=== PATIENT | female | born 1990 ===

== ENCOUNTER 2020-06-16 10:26 | Emergency (ER) | payer OTHER, MEDICAID, SELFPAY ==
--- NOTE | ~2020-06-16 | XR_ITS ---
EXAMINATION: XR CHEST CLINICAL INFORMATION: Shortness of breath COMPARISON: 05/24/2016 TECHNIQUE: Frontal view of the chest was obtained. FINDINGS: The cardiomediastinal silhouette is within normal limits. The lungs are well expanded. There is patchy opacities in the medial aspect of right lung base, appearing slightly more prominent as compared to previous. This could be related to overlapping densities versus developing infiltrate.. There is no focal consolidation, edema, or effusion. No pneumothorax. No acute osseous abnormality. XR/XR chest 1V IMPRESSION: Patchy opacities in the medial aspect of the right lung base, slightly more prominent as compared to previous, could be related to overlapping densities versus developing infiltrate.
[2020-06-16 10:44] VITALS: BP 117/76; PULSE 102; RESP 16; TEMP 36.8; O2SAT 100; BMI 26.5
--- NOTE | 2020-06-16 10:51 | ED_ITS ---
HPI - SOB/Dyspnea General Chief Complaint: Dyspnea Stated Complaint: covid + SOB Time Seen by Provider: 06/16/20 10:46 Source: patient Mode of arrival: ambulatory Limitations: no limitations History of Present Illness HPI Narrative: 29 y/o female with history of Crohn's disease, depression and anxiety who was diagnosed with COVID-19 4 days ago presents with worsening SOB and chest tightness for the last 2 days. She has a hard time catching her breath when she walks. She states the chest tightness radiates to her back. She has body aches, fatigue as well as diarrhea for the last 1 week. She thinks she is having a Crohn's flare because there is a small amount of blood in her stool. She has been off of her Lara for a while now because of mental health issues. She denies abdominal pain. MD elicited complaint: shortness of breath Onset (ago): day(s) (2-3) Context: recent illness Timing: intermittent and progressively worsening Severity: moderate Exacerbating factors: exertion and coughing Relieving factors: rest and upright position Associated symptoms: chest pain, fever and cough Treatment prior to arrival: none Related Data Home oxygen amount: none Previous Rx's Medication Instructions Recorded albuterol sulfate 1 inh INHALATION QID PRN #6.7 g 06/16/20 azithromycin [Zithromax Z-Tong] See Rx Instructions .ROUTE 06/16/20 .COMPLEX #6 tab prednisone 40 mg PO DAILY #10 tab 06/16/20 Allergies Allergy/AdvReac Type Severity Reaction Status Date / Time buspirone [From BUSPAR] Allergy Unknown RASH Unverified 01/06/20 17:17 BuSpar Allergy Unknown Uncoded 03/01/19 00:00 Review of Systems Review of Systems: Constitutional: + Fever, + Chills ENT/Mouth: No sore throat, No Rhinorrhea, No Swallowing Difficulty Cardiovascular: + Chest Pain, + SOB, No Orthopnea, No Edema Respiratory: + Cough, No Sputum, No Wheezing, + dyspnea Gastrointestinal: No Nausea, No Vomiting, + Diarrhea, No abdominal Pain, + Hematochezia, No Melena Genitourinary: No Dysuria, No Urinary Frequency, No Hematuria Musculoskeletal: No joint pain, + Myalgias Skin: No Skin Lesions, No rash Neuro: + Weakness, No Numbness, No Dizziness, + Headache Psych: + Anxiety/Panic, + Depression Heme/Lymph: No Bruising, No Lymphadenopathy Endocrine: No Polyuria, No Polydipsia PMFSH Past Medical History Attestation statement: The following information was validated with the patient. Medical History Acute Crohn's disease Social History Social History Alcohol intake: never Smoking Status: Current some day smoker Use of substances other than those prescribed or required for medical reasons: Yes Substance Use Type: Marijuana Last Used Substance: Days (ago) Advance Directives: No Advance Directives Information Provided: No Physical Exam Vital Signs: Vital Signs: Last Vital Signs Temp 98.2 F 06/16/20 10:44 Pulse 85 06/16/20 11:36 Resp 18 06/16/20 11:36 BP 98/62 06/16/20 11:36 Pulse Ox 100 06/16/20 11:36 Body Mass Index 26.5 Appearance: Alert. Oriented X3. Mild respiratory distress, after walking back from the bathroom. Eyes: Pupils equal, round and reactive to light. ENT: Pharynx normal. Neck: Normal inspection. Neck supple. CVS: Tachycardic, regular rhythm. Pulses normal. Respiratory: Mild respiratory distress with RR low 20s, dyspneic when speaking. Lungs are clear throughout Abdomen: Soft and nontender. +BS x4 Skin: Skin warm and dry. Normal skin color. Normal skin turgor. No rashes. Extremities: No lower extremity edema. Neuro: Oriented X 3. No motor deficit. No sensory deficit. Steady gait Course Course Course Narrative: 29 yo female with hx Crohn's and recent COVID diagnosis presenting with SOB, MATTA and chest tightness. Slightly tachycardic on arrival and dyspnea noted on walking. Her Spo2 is 100%. Need to r/o PE given her COVID diagnosis. CXR and blood work ordered. Reevaluation(s) Reevaluation #1: DDIMER <200 which is reassuring against PE. Her CXR shows possible infiltrate at RLL, likely viral due to COVID-19. Will treat with pred nisone and azithromycin for anti-inflammatory affects. She was counseled on results and concerning signs/symptoms that should prompt emergent reevauation in the ED. MDM - SOB/Dyspnea Lab Data Result diagrams: 06/16/20 12:04 06/16/20 12:04 Labs: Lab Results 06/16/20 06/16/20 06/16/20 Range/Units 12:04 12:04 12:04 WBC 4.9 (4.8-10.8) X10*3/uL RBC 4.66 (4.20-5.50) X10*6/uL Hgb 14.2 (12.0-16.0) g/dl Hct 41.3 (37-47) % MCV 88.6 (80-98) fL MCH 30.5 (27.0-33.0) pg MCHC 34.4 (31.0-35.0) g/dl RDW 11.5 (11.0-16.0) % Plt Count 285 (160-400) X10*3/uL MPV 9.5 (9.4-12.3) fL Immature Gran % (Auto) 0.4 (0.0-0.4) % Neut % (Auto) 71.1 (45-73) % Lymph % (Auto) 16.6 L (20-40) % Burnet % (Auto) 9.3 (2-11) % Eos % (Auto) 2.2 (0-4) % Baso % (Auto) 0.4 (0-2) % Lymph # (Auto) 0.8 L (1.2-4.9) X10*3/uL Burnet # (Auto) 0.5 (0.1-1.2) X10*3/uL Eos # (Auto) 0.1 (0.0-0.4) X10*3/uL Baso # (Auto) 0.0 (0.0-0.2) X10*3/uL Abs Immat Gran (auto) 0.02 (0.00-0.03) X10*3/uL Absolute Neuts (auto) 3.5 (2.0-8.3) X10*3/uL Absolute Nucleated RBC 0.000 (0.0-0.012) X10*3/uL Nucleated RBC % (auto) 0.0 (0.0-0.2) /100WBC D-Dimer < 200 NG/ML Hold Blue Top SEE NOTE Sodium 139 (135-145) mmol/L Potassium 3.6 (3.3-5.1) mmol/L Chloride 103 (96-108) mmol/L Carbon Dioxide 26 (22-29) mmol/L Anion Gap 14 (12-20) BUN 17 H (9-16) mg/dL Creatinine 0.77 (0.5-1.4) mg/dL Estim Creat Clear Calc 84.7 Estimated GFR > 60 Random Glucose 85 (60-115) mg/dL Calcium 9.0 (8.4-10.2) mg/dL Magnesium 2.0 (1.6-2.6) mg/dL Total Bilirubin 0.7 (0.0-1.0) mg/dL Direct Bilirubin 0.3 (0.0-0.5) mg/dL AST 13 (5-31) U/L ALT 13 (0-31) U/L Alkaline Phosphatase 96 (39-117) U/L C-Reactive Protein 1.24 H (< or = 0.50) mg/dL Total Protein 8.3 H (6.5-8.0) g/dL Albumin 4.6 (3.5-5.0) g/dL Discharge Plan Discharge Clinical Impression: COVID-19 Patient Disposition: Home, Self-Care Instructions: COVID-19 (Coronavirus Disease 2019) (ED) Additional Instructions: Your chest x-ray showed a possible small developing pneumonia at the bottom of your right lung. Take the prescribed antibiotic and steroid medication as directed for this. Use the inhaler as needed for shortness of breath. Your oxygen levels were normal today. Your blood work was unremarkable. Rest. Drink plenty of fluids. Do not go out in public for the next 10 days. Take over the counter cold/flu medications as needed for your symptoms. Take Tylenol and/or Motrin as needed for fevers and body aches. Follow up with your doctor this week. If you shortness of breath worsens, if you develop difficulty breathing or any other concerning symptom come back to the ER for further evaluation. Prescriptions: New azithromycin [Zithromax Z-Tong] 250 mg tablet See Rx Instructions .ROUTE .COMPLEX Qty: 6 RF: 0 prednisone 20 mg tablet 40 mg PO DAILY Qty: 10 RF: 0 albuterol sulfate 90 mcg/actuation HFA aerosol inhaler 1 inh inhalation QID PRN (Reason: shortness of breath or wheezing) Qty: 6.7 RF: 0 Referrals: Austin Luz [Physician] - 2 days (Crohn's disease)
[2020-06-16 11:36] VITALS: BP 98/62; PULSE 85; RESP 18; O2SAT 100
--- NOTE | 2020-06-16 11:50 | PC.NURSE ---
while being triaged pt said that she was feeling faint and asked to lay down. pt was moved to [facility]. aware
[2020-06-16 12:11] LABS: MANUAL DIFF FLAG NO
[2020-06-16 12:12] LABS: Basophils Percent Auto 0.4 % (0-2); Eosinophils Absolute Auto 0.1 X10*3/uL (0.0-0.4); Eosinophils Percent Auto 2.2 % (0-4); Hematocrit 41.3 % (37-47); Hemoglobin 14.2 g/dl (12.0-16.0); Imm Gran Abs Auto 0.02 X10*3/uL (0.00-0.03); Imm Gran Pct Auto 0.4 % (0.0-0.4); Lymphocytes Absolute Auto 0.8 X10*3/uL (1.2-4.9); Lymphocytes Percent Auto 16.6 % (20-40); Mean Corpuscular HGB Conc 34.4 g/dl (31.0-35.0); Mean Corpuscular Hemoglobin 30.5 pg (27.0-33.0); Mean Corpuscular Volume 88.6 fL (80-98); Mean Platelet Volume 9.5 fL (9.4-12.3); Monocytes Absolute Auto 0.5 X10*3/uL (0.1-1.2); Monocytes Percent Auto 9.3 % (2-11); Neutrophils Absolute Auto 3.5 X10*3/uL (2.0-8.3); Neutrophils Percent Auto 71.1 % (45-73); Platelet Count 285 X10*3/uL (160-400); Red Blood Count 4.66 X10*6/uL (4.20-5.50); Red Cell Distribution Width 11.5 % (11.0-16.0); White Blood Count 4.9 X10*3/uL (4.8-10.8)
[2020-06-16 12:24] LABS: D Dimer < 200 NG/ML
[2020-06-16 12:43] LABS: Alanine Aminotransferase 13 U/L (0-31); Albumin Level 4.6 g/dL (3.5-5.0); Alkaline Phosphatase 96 U/L (39-117); Anion Gap 14 (12-20); Aspartate Amino Transferase 13 U/L (5-31); Bilirubin Direct 0.3 mg/dL (0.0-0.5); Bilirubin Total 0.7 mg/dL (0.0-1.0); Blood Urea Nitrogen 17 mg/dL (9-16); C Reactive Protein 1.24 mg/dL (< or = 0.50); Carbon Dioxide 26 mmol/L (22-29); Chloride 103 mmol/L (96-108); Creatinine Clr Calc Pharmacy 84.7; Estimated Glomerular Filt Rate > 60; Glucose Random 85 mg/dL (60-115); Potassium 3.6 mmol/L (3.3-5.1); Sodium 139 mmol/L (135-145); Total Protein 8.3 g/dL (6.5-8.0)
[2020-06-16 13:21] LABS: Procalcitonin < 0.02 ng/mL
== END 2020-06-16 13:16 | disposition home or self-care (01) ==
PROVIDERS: Physician Assistant; Emergency Provider Emergency Medicine Emergency Medical Services
DX: U07.1 COVID-19 (principal); K50.90 Crohn's disease, unspecified, without complications; F32.9 Major depressive disorder, single episode, unspecified; F41.9 Anxiety disorder, unspecified; F17.200 Nicotine dependence, unspecified, uncomplicated; F12.90 Cannabis use, unspecified, uncomplicated
CPT/HCPCS: 36415; 71045; 80048; 80076; 83735; 84145; 85025; 85379; 86140; 99283; 99284

== ENCOUNTER 2022-12-12 11:24 | Emergency (ER) | payer OTHER, SELFPAY ==
--- NOTE | ~2022-12-12 | XR_ITS ---
EXAMINATION: XR FOOT, LEFT CLINICAL INFORMATION: Pain. Question foreign body. Stepped on glass. COMPARISON: None available. TECHNIQUE: AP, lateral, and oblique views of the left foot. FINDINGS: There is no evidence of acute fracture or dislocation of the left foot. Joint spaces are maintained. There appears to be some soft tissue edema seen about the plantar aspect of the distal metatarsals and metatarsophalangeal joints without radiopaque foreign body identified. XR/XR foot LT min 3V IMPRESSION: Soft tissue swelling without definite radiopaque foreign body identified. No acute bony abnormality.
[2022-12-12 11:56] VITALS: BP 149/79; PULSE 100; RESP 19; TEMP 36.6; O2SAT 98; BMI 31.3
--- NOTE | 2022-12-12 11:59 | ED.GENADULT ---
HPI - General Adult General Chief complaint: Wound/Laceration Stated complaint: l foot laceration glass Time Seen by Provider: 12/12/22 13:37 Source: patient and RN notes reviewed Mode of arrival: ambulatory Limitations: no limitations History of Present Illness HPI narrative: This is a 32-year-old female, with no known past medical problems, presenting to the emergency department with complaints of left foot laceration since today. Patient states that she accidentally stepped on a piece of broken glass from a snow globe at her house. The area immediately bled. She does not believe that there is any glass left in her foot. Her tetanus is not up-to-date. She states pain worsening with palpation and with ambulation. Denies numbness or tingling. No other complaints or concerns at this time. MD complaint: Left foot laceration Onset (ago): minute(s) Location: lower extremity Radiation: non-radiation Severity: moderate Quality: burning Pain Consistency: constant Relieving factors: none Exacerbating factors: none Associated symptoms: denies other symptoms Treatments prior to arrival: none Related Data Previous Rx's Medication Instructions Recorded albuterol sulfate 90 mcg/actuation 1 inh inhalation QID PRN shortness 06/16/20 aerosol inhaler of breath or wheezing #6.7 grams azithromycin 250 mg tablet See Rx Instructions PO .COMPLEX #6 06/16/20 (Zithromax Z-Tong) tabs prednisone 20 mg tablet 40 mg PO DAILY #10 tabs 06/16/20 Allergies Allergy/AdvReac Type Severity Reaction Status Date / Time buspirone [From BUSPAR] Allergy Unknown RASH Verified 12/12/22 11:56 BuSpar Allergy Unknown Rash Uncoded 12/12/22 11:56 Review of Systems Review of Systems: Yes all other systems are reviewed and are negative [facility] Past Medical History Medical History Acute Crohn's disease Social History Social History Alcohol intake: current Alcohol intake frequency: holidays/special occasions only Smoked in Last 30 Days: No Use of substances other than those prescribed or required for medical reasons: No Substance Use Type: Marijuana Advance Directives: No Physical Exam ED Vital Signs: Vital Signs - 24 hr 12/12/22 11:56 12/12/22 13:37 12/12/22 14:37 Temperature 98 F Pulse Rate 100 85 81 Respiratory Rate 19 14 18 Blood Pressure 149/79 H 111/55 L 131/72 Pulse Oximetry 98 98 100 Oxygen Delivery Method Room Air Room Air BMI result Body Mass Index 31.3 Const Other: General: Awake, alert, and oriented X3. No acute distress. HEENT: Normal inspection CVS: Normal heart rate and rhythm. Pulses normal. Respiratory: No respiratory distress Skin: See extremity Section for laceration Neuro: Oriented X 3. No motor deficit. No sensory deficit. Extrem Ankle/foot/toe images: 1. Left foot there is a linear 2 mm partial-thickness laceration noted, no active bleeding or discharge. No foreign body appreciated. Course Course Course Narrative: RME- 32 year old female presents for evaluation of a small left foot laceration after stepping on glass. No active bleeding. Plan for x-ray Medications Administered Discontinued Medications Generic Name Dose Route Start Last Admin Trade Name Freq PRN Reason Stop Dose Admin Diphtheria/Tetanus/Acell Pertussis 0.5 ml 12/12/22 15:34 12/12/22 15:42 Diphth,Pertus(Acell),Tet Adult 0.5 Ml Syringe IM 12/12/22 15:35 0.5 ml .ONCE ONE Administration Procedures Procedure Narrative Procedure Narrative: Wound extensively did cleansed with Betadine and saline solution. No foreign body appreciated. No active bleeding. Dermabond was applied to wound. Patient tolerated procedure well without any complications or concerns. Patient's wound dressed with nonstick dressing. Medical Decision Making Medical Decision Making MDM Narrative: 32-year-old female presenting to the emergency department for evaluation of left foot laceration since today. She accidentally stepped on a piece of glass at home. On examination there is a 2 mm partial-thickness linear laceration noted. X-ray revealing no evidence of foreign body. Wound cleanse and extensively explored, no foreign body appreciated. Wound closed with Dermabond. Patient tolerated procedure well without any complications or concerns. . Given good wound care instructions. Patient reporting that she is having pain with ambulation and is requesting crutches. Patient given crutches in department today. Wound dressed with nonstick dressing. Advised to return with any new or worsening symptoms. Patient understands and agrees with plan. Tetanus was updated in department today. Patient stable for discharge. Differential Diagnosis Differential Diagnoses: The differential diagnosis associated with the presentation includes Laceration, contusion, abrasion, foreign body Radiology Impression Discussion of test interpretation with radiology: I have reviewed the radiologist's reading. Radiologist Impression: EXAMINATION: XR FOOT, LEFT CLINICAL INFORMATION: Pain. Question foreign body. Stepped on glass.? COMPARISON: None available.? TECHNIQUE: AP, lateral, and oblique views of the left foot. FINDINGS: There is no evidence of acute fracture or dislocation of the left foot. Joint spaces are maintained. There appears to be some soft tissue edema seen about the plantar aspect of the distal metatarsals and metatarsophalangeal joints without radiopaque foreign body identified.? XR/XR foot LT min 3V IMPRESSION: Soft tissue swelling without definite radiopaque foreign body identified. No acute bony abnormality. Dictated By: Dexter Soria MD Signed Discharge Plan Discharge Clinical Impression: Laceration of foot Patient Disposition: Home, Self-Care Instructions: Laceration (ED) Additional Instructions: Your x-ray did not show any foreign body. We updated your tetanus vaccine today. Please keep wound clean and dry. The liquid bandage that we applied will fall off on its own. Do not pick at wound. If wound gets wet, pat dry. Watch for any signs of infection including but not limited to fevers, chills, increased redness or drainage. Please return with any new or worsening symptoms. You may take Tylenol or ibuprofen as needed for pain. Prescriptions: No Action azithromycin [Zithromax Z-Tong] 250 mg tablet See Rx Instructions .ROUTE .COMPLEX Qty: 6 0RF Rx Instructions: take 500 mg today (day 1), then 250 mg for 4 days (days 2-5) prednisone 20 mg tablet 40 mg PO DAILY Qty: 10 0RF albuterol sulfate 90 mcg/actuation HFA aerosol inhaler 1 inh inhalation QID PRN (Reason: shortness of breath or wheezing) Qty: 6.7 0RF Interventions: ED Discharge Assessment Last Done: 12/12/22 15:48 Discharge Date/Time: 12/12/22 16:00
[2022-12-12 13:37] VITALS: BP 111/55; PULSE 85; RESP 14; O2SAT 98
[2022-12-12 14:37] VITALS: BP 131/72; PULSE 81; RESP 18; O2SAT 100
[2022-12-12] MEDS: Diphth,Pertus(ACell),Tet Adult 0.5 ML SYRINGE IM (15:42)
--- NOTE | 2022-12-12 15:46 | PC.NURSE ---
PT IS BEING FITTED FOR CRUTCHES SHE STATES SHE CANNOT TOLERATE WB STATUS .SHE WAS GIVEN A TETANUS SHOT
== END 2022-12-12 16:00 | disposition home or self-care (01) ==
PROVIDERS: Emergency Provider Emergency Medicine; PCP Internal Medicine
DX: S91.312A Laceration without foreign body, left foot, initial encounter (principal); W25.XXXA Contact with sharp glass, initial encounter; Y93.89 Activity, other specified; Y92.039 Unspecified place in apartment as the place of occurrence of the external cause; Y99.9 Unspecified external cause status
CPT/HCPCS: 12001; 73630; 90471; 90715; 99284

== ENCOUNTER 2023-03-14 04:20 | Emergency (ER) | payer OTHER, SELFPAY ==
[2023-03-14 04:27] VITALS: BP 123/60; PULSE 110; RESP 16; O2SAT 95; BMI 32.3
[2023-03-14 04:35] VITALS: BP 123/60; PULSE 104; RESP 16; TEMP 37.2; O2SAT 97
--- NOTE | 2023-03-14 04:42 | PC.NURSE ---
a&ox3, vss and up to date at this time. pt comes in today d/t new onset of hives around 0300 this morning. pt states she woke up and thought she had bug bites but turned light on and saw hives everywhere. red/small/raised hives noted throughout lower and upper extremities primarily. hives slightly noted to trunk. pt denies pain but states that hives are extremely itchy. denies any new food, detergent, lotion, etc. unaware of possible allergen. pt verbalizing dyspnea but states that these sx began on friday when she was dx w/ pneumonia. no sob/wob noted at this times. productive cough noted. crackles noted in lower lungs bilaterally upon auscultation. respirations even and unlabored. pt's daughter bedside. call figueroa placed within reach.
--- NOTE | 2023-03-14 05:57 | PC.NURSE ---
pt still waiting to be seen by provider after an hour and a half - pt becoming agitated/frustrated d/t long wait and states that the reason why she presents to ED is not important d/t not being seen by provider and wants to leave facility.
--- NOTE | 2023-03-14 06:07 | PC.NURSE ---
Addendum entered by Lisa Muro 03/14/23 06:26: pt was not AMA - she left without being seen Original Note: pt became more agitated and left AMA w/o any paperwork - charge histotechnologist aware.
== END 2023-03-14 06:22 | disposition left against medical advice (07) ==
PROVIDERS: Emergency Provider Emergency Medicine; PCP Internal Medicine
DX: L50.0 Allergic urticaria (principal)
CPT/HCPCS: 99283; 99284

== ENCOUNTER 2024-07-22 11:40 | Emergency (ER) | payer OTHER, SELFPAY ==
[2024-07-22 11:54] VITALS: BP 125/73; PULSE 90; RESP 20; TEMP 36.4; O2SAT 100; BMI 35.5
--- NOTE | 2024-07-22 11:55 | ED.GENADULT ---
HPI - General Adult General Chief complaint: Nausea/Vomiting/Diarrhea Stated complaint: Vomiting, 11 weeks Time Seen by Provider: 07/22/24 13:53 Source: patient Mode of arrival: ambulatory Limitations: no limitations History of Present Illness ED Provider: SHABBIR SIDHU PA-C HPI narrative: 33 year old female A1 presents to the ED today for evaluation of nausea and vomiting x weeks. She states she is currently 11 weeks . She has been unable to tolerate any PO intake over the last few days, including water. She has been taking vit b6 and unisom without effect. She contacted her OBGYN this morning who advised her to come to the ED for fluid rehydration and antiemetics. She states that reglan was sent to her pharmacy this morning prior to her presenting to the ED. She has not yet picked this up. Reports hx of hyperemesis gravidarum in her previous . She has not been diagnosed with this during this . She also reports RLQ pain x1 month. She has been worked up for this by OBGYN and had ultrasound rule out of appendicitis. She also had ultrasound confirmation of IUP at 8 weeks. Pain is unchanged from onset 1 month ago. Pain sharp and intermittent, worse with specific movements and sneezing. Her OBGYN suspects early round ligament pain. Denies fever, chills, decreased appetite, flank pain, urinary sx, vaginal discharge or bleeding. Denies trauma/injury/falls. Related Data Previous Rx's ?Medication ?Instructions ?Recorded albuterol sulfate 90 mcg/actuation 1 inh inhalation QID PRN shortness 06/16/20 aerosol inhaler of breath or wheezing #6.7 grams azithromycin 250 mg tablet See Rx Instructions PO .COMPLEX #6 06/16/20 (Zithromax Z-Tong) tabs prednisone 20 mg tablet 40 mg (2 x 20 mg) PO DAILY #10 tabs 06/16/20 diphenhydramine HCl 25 mg capsule 25 mg PO TID PRN nausea and 07/22/24 (Benadryl) vomiting #30 caps metoclopramide HCl 10 mg tablet 10 mg PO Q6H PRN nausea and 07/22/24 (Reglan) vomiting #20 tabs nitrofurantoin 100 mg PO BID 7 days #14 caps 07/22/24 monohydrate/macrocrystals 100 mg capsule Allergies Allergy/AdvReac Type Severity Reaction Status Date / Time buspirone [From BUSPAR] Allergy Unknown RASH Verified 07/22/24 11:58 BuSpar Allergy Unknown Rash Uncoded 03/14/23 04:27 Review of Systems Review of Systems: Yes all other systems are reviewed and are negative [facility] Past Medical History Attestation statement: The following information was validated with the patient. Source: old records reviewed, obtained from family and nursing notes reviewed Medical History Acute Crohn's disease Social History Social History Alcohol intake: current Alcohol intake frequency: holidays/special occasions only Substance Use Type: Marijuana Advance Directives: No Advance Directives Information Provided: Yes Do you have a plan to hurt others: No Plan Physical Exam ED Vital Signs: Vital Signs - 24 hr 07/22/24 11:54 07/22/24 12:00 07/22/24 16:30 Temperature 97.5 F 98.6 F 98.9 F Pulse Rate 90 90 97 Respiratory Rate 20 16 16 Blood Pressure 125/73 107/68 101/61 Pulse Oximetry 100 100 100 Oxygen Delivery Method Room Air Room Air Room Air BMI result Body Mass Index 35.5 Vital signs stable General: Well appearing, in no acute distress. Skin: Warm, dry, intact. No rashes or lesions. Head: Normocephalic, atraumatic. EENT: Hearing is intact b/l. Conjunctiva clear. PERRLA. EOM intact. Moist mucous membranes.? Neck: Supple without LAD Cardiac: Chest wall symmetric. RRR Lungs: Normal respiratory effort without accessory muscle use. CTA bilaterally Abdomen: soft, non-tender, non-distended. No rebound tenderness or guarding. Positive BS x4. no cvat. Back: No midline spinous or paraspinal tenderness. No step off deformity. Ext: Upper and lower extremities atraumatic, without tenderness, deformity, swelling or erythema Neuro: AOx3. Normal speech. Ambulating with steady gait. Course Course Course Narrative: This is a rapid medical exam performed by Jo Najera NP: Additional HPI, ROS, PE not included below will be deferred to primary provider. 07/22/24 11:55 Patient is a 33-year-old female 11-week female, LIBIA 02/[birth year], hx of hyperemesis with first presenting with nausea and vomiting for weeks. States has not been able to tolerate anything PO. Has been having rlq pain but states has been seen for this and ectopic/appy have been ruled out, OB feels this is due to round ligament pain. OB care at [facility], had 8 week U/S to confirm IUP. Plan: Labs, UA Reevaluation(s) Reevaluation #1: 1425 -- cbc without leukocytosis or left shift. no anemia, h&h stable. chemistry without acute electrolyte abnormality requiring intervention. no bertrand. liver function wnl. serum b hcg 13708. > IVF, reglan and Benadryl ordered. plan to PO trial and re-evaluate 1638 -- Patient reports resolution of nausea with IV Reglan, Benadryl and fluids. she is tolerating PO. she feels well. at this time, I feel patient is stable for discharge home with OBGYN follow up. will send [facility] meds to pharmacy. urine w/ 1+ bacteria and leukocytes. 6-20 urine squamous epithelial cells. Unclear if this is contamination. as patient is , will start her on a course of macrobid for treatment. culture pending. > she was no vaginal bleeding. her abdominal exam is benign. I do not feel as though US is warranted at this time. > Patient has remained stable throughout ED visit today. Discussed worrisome signs and symptoms and when to return to the ED. All questions answered at this time. Patient is agreeable with disposition and stable for discharge. Medications Administered Discontinued Medications Generic Name Dose Route Start Last Admin Trade Name Freq PRN Reason Stop Dose Admin Diphenhydramine HCl 25 mg 07/22/24 14:20 07/22/24 15:03 Diphenhydramine Hcl 50 Mg/Ml Vial IVPUSH 07/22/24 14:21 25 mg ONCE ONE Administration Sodium Chloride 1,000 mls @ 999 mls/hr 07/22/24 14:30 07/22/24 15:14 Ns IV 07/22/24 15:30 999 mls/hr .Q1H1M JOHNNY Administration Metoclopramide HCl 10 mg 07/22/24 14:20 07/22/24 14:58 Metoclopramide Hcl 10 Mg/2 Ml Vial IVPUSH 07/22/24 14:21 10 mg ONCE ONE Administration Medical Decision Making Medical Decision Making [facility] Narrative: 33 year old female A1 currently 11 wks presents to the ED today for evaluation of nausea and vomiting x weeks. vital signs stable. afebrile. she is well appearing and in NAD. abdominal exam benign. no cvat. Differential diagnoses: Intrauterine , nausea and vomiting in , 1st trimester , UTI, hyperemesis gravidarum, dehydration, anemia, electrolyte abnormality Abdominal exam without peritoneal signs. No evidence of acute abdomen at this time. Unlikely appendicitis, diverticulitis, diverticulosis, constipation. Well appearing. Low suspicion for acute hepatobiliary disease (including acute cholecystitis), acute infectious processes (pneumonia, hepatitis, pyelonephritis, PID, TOA), vascular catastrophe, bowel obstruction or viscus perforation, ovarian cyst/ rupture/ torsion. Presentation not consistent with other acute, emergent causes of abdominal pain at this time. Plan: labs, UA, reglan+benadryl, fluids, serial reassessment Differential Diagnosis Differential Diagnoses: The differential diagnosis associated with the presentation includes as above. Admission/Observation not indicated. Lab Data [facility] Lab Attestation statement: I reviewed the patient's lab results. as above. 07/22/24 12:06 07/22/24 12:06 Labs: Lab Results 07/22/24 07/22/24 Range/Units 12:06 14:04 WBC 9.9 (4.8-10.8) X10*3/uL RBC 3.89 L (4.20-5.50) X10*6/uL Hgb 12.5 (12.0-16.0) g/dl Hct 35.6 L (37.0-47.0) % MCV 91.5 (80.0-98.0) fL MCH 32.1 (27.0-33.0) pg MCHC 35.1 H (31.0-35.0) g/dl RDW 12.4 (11.0-16.0) % Plt Count 307 (160-400) X10*3/uL MPV 9.2 L (9.4-12.3) fL Immature Gran % (Auto) 0.3 (0.0-0.4) % Neut % (Auto) 67.2 (45-73) % Lymph % (Auto) 22.2 (20-40) % [place] % (Auto) 4.5 (2-11) % Eos % (Auto) 5.6 H (0-4) % Baso % (Auto) 0.2 (0-2) % Lymph # (Auto) 2.2 (1.2-4.9) X10*3/uL [place] # (Auto) 0.4 (0.1-1.2) X10*3/uL Eos # (Auto) 0.6 H (0.0-0.4) X10*3/uL Baso # (Auto) 0.0 (0.0-0.2) X10*3/uL Abs Immat Gran (auto) 0.03 (0.00-0.03) X10*3/uL Absolute Neuts (auto) 6.6 (2.0-8.3) x10*3/uL Absolute Nucleated RBC 0.000 (0.0-0.012) X10*3/uL Nucleated RBC % (auto) 0.0 (0.0-0.2) /100WBC Sodium 137 (135-145) mmol/L Potassium 4.0 (3.3-5.1) mmol/L Chloride 106 (96-108) mmol/L Carbon Dioxide 25 (22-29) mmol/L Anion Gap 10 L (12-20) BUN 8 L (9-16) mg/dL Creatinine 0.54 (0.5-1.4) mg/dL Estim Creat Clear Calc 135.2 Estimated GFR > 60 Random Glucose 105 (60-115) mg/dL Calcium 9.2 (8.4-10.2) mg/dL Total Bilirubin 0.3 (0.0-1.0) mg/dL AST 21 (5-31) U/L ALT 21 (0-31) U/L Alkaline Phosphatase 79 (39-117) U/L Total Protein 7.1 (6.5-8.0) g/dL Albumin 3.9 (3.5-5.0) g/dL Beta HCG, Quant 11637 mIU/mL Urine Color Yellow Urine Appearance Clear Urine pH 6.5 (5.0-9.0) Ur Specific [place] 1.025 (1.005-1.025) Urine Protein Trace (Neg-Trace) mg/dL Urine Glucose (UA) Negative (Negative) mg/dL Urine Ketones 15 (Negative) mg/dL Urine Blood Negative (Negative) Urine Nitrite Negative (Negative) Ur Leukocyte Esterase Small (1+) H (Negative) Urine RBC 0-2 (0-2) /HPF Urine WBC 11-20 H (0-5) /HPF Ur Squamous Epith Cells 6-10 (0-2) /HPF Urine Bacteria 1+ (None Seen) Hyaline Casts 0-2 (0-2) /LPF Independent Historian Clinical information obtained from an independent historian. History obtained from or confirmed by: Spouse Prescription Management I considered prescription management with: Antibiotic (macrobid) and Other (benadryl, reglan) Chronic Conditions Patient?s care impacted by: Other () Social Determinants Patient?s care significantly limited by Social Determinants of Health including: Other Social Determinant of Health Critical Care Time Critical Care Time Critical Care Time: No Discharge Plan Discharge Clinical Impression: Nausea and vomiting during , UTI (urinary tract infection) Patient Disposition: Home, Self-Care Instructions: Nausea and Vomiting in (ED), Urinary Tract Infection in (ED) Additional Instructions: You were evaluated in the ED today for nausea and vomiting in . Your blood work is reassuring. Your urine shows mild urinary tract infection. Macrobid is an antibiotic that has been sent to your pharmacy for treatment. I have sent Benadryl and Reglan to your pharmacy to help with your nausea. Take these together. Follow up with your OBGYN. Return with new or worsening symptoms. In the case of an emergency call 911. Prescriptions: New diphenhydramine HCl [Benadryl] 25 mg capsule 25 mg PO TID PRN (Reason: nausea and vomiting) Qty: 30 0RF metoclopramide HCl [Reglan] 10 mg tablet 10 mg PO Q6H PRN (Reason: nausea and vomiting) Qty: 20 0RF nitrofurantoin monohyd/m-cryst 100 mg capsule 100 mg PO BID 7 Days Qty: 14 0RF Rx Instructions: must administer with a meal/food No Action azithromycin [Zithromax Z-Tong] 250 mg tablet See Rx Instructions .ROUTE .COMPLEX Qty: 6 0RF Rx Instructions: take 500 mg today (day 1), then 250 mg for 4 days (days 2-5) prednisone 20 mg tablet 40 mg PO DAILY Qty: 10 0RF albuterol sulfate 90 mcg/actuation HFA aerosol inhaler 1 inh inhalation QID PRN (Reason: shortness of breath or wheezing) Qty: 6.7 0RF Referrals: Whitley Garcia MD [Primary Care Provider] - Print Language: [place]ralt[place]
[2024-07-22 12:00] VITALS: BP 107/68; PULSE 90; RESP 16; TEMP 37; O2SAT 100
[2024-07-22 12:11] LABS: MANUAL DIFF FLAG NO
[2024-07-22 12:13] LABS: Hematocrit 35.6 % (37.0-47.0); Hemoglobin 12.5 g/dl (12.0-16.0); Mean Corpuscular HGB Conc 35.1 g/dl (31.0-35.0); Mean Corpuscular Hemoglobin 32.1 pg (27.0-33.0); Mean Corpuscular Volume 91.5 fL (80.0-98.0); Red Blood Count 3.89 X10*6/uL (4.20-5.50); Red Cell Distribution Width 12.4 % (11.0-16.0); White Blood Count 9.9 X10*3/uL (4.8-10.8)
[2024-07-22 12:14] LABS: Basophils Percent Auto 0.2 % (0-2); Eosinophils Absolute Auto 0.6 X10*3/uL (0.0-0.4); Eosinophils Percent Auto 5.6 % (0-4); Imm Gran Abs Auto 0.03 X10*3/uL (0.00-0.03); Imm Gran Pct Auto 0.3 % (0.0-0.4); Lymphocytes Absolute Auto 2.2 X10*3/uL (1.2-4.9); Lymphocytes Percent Auto 22.2 % (20-40); Mean Platelet Volume 9.2 fL (9.4-12.3); Monocytes Absolute Auto 0.4 X10*3/uL (0.1-1.2); Monocytes Percent Auto 4.5 % (2-11); Neutrophils Absolute Auto 6.6 x10*3/uL (2.0-8.3); Neutrophils Percent Auto 67.2 % (45-73); Platelet Count 307 X10*3/uL (160-400)
[2024-07-22 12:26] LABS: Alanine Aminotransferase 21 U/L (0-31); Albumin Level 3.9 g/dL (3.5-5.0); Alkaline Phosphatase 79 U/L (39-117); Anion Gap 10 (12-20); Aspartate Amino Transferase 21 U/L (5-31); Bilirubin Total 0.3 mg/dL (0.0-1.0); Blood Urea Nitrogen 8 mg/dL (9-16); Calcium 9.2 mg/dL (8.4-10.2); Carbon Dioxide 25 mmol/L (22-29); Chloride 106 mmol/L (96-108); Creatinine Clr Calc Pharmacy 135.2; Estimated Glomerular Filt Rate > 60; Glucose Random 105 mg/dL (60-115); Sodium 137 mmol/L (135-145); Total Protein 7.1 g/dL (6.5-8.0)
--- NOTE | 2024-07-22 13:53 | PC.NURSE ---
Pt coming in with complaints of vomiting, she is currently 11 weeks , , she does have a history of HHS with previous including multiple hospital stays. Pt has been trying to use B6 and Unisom with no relief. [facility] is her OBGYN, she has seen them but they advised she come to the ED today d/t not being able to keep PO fluids/food down for multiple days.
[2024-07-22 14:14] LABS: Appearance Urine Clear; Color Urine Yellow; Glucose Urine UA Negative (Negative); Leukocyte Esterase Urine Small (1+) (Negative); Nitrite Urine Negative (Negative); PH 6.5 (5.0-9.0); Specific Gravity - Urine 1.025 (1.005-1.025); UMIC TRIGGER UACC YES; Urine Blood Negative (Negative); Urine Ketones 15 mg/dL (Negative); Urine Protein Trace mg/dL (Neg-Trace)
[2024-07-22 14:20] LABS: Bacteria Urine 1+ (None Seen); Hyaline Casts Urine 0-2 /LPF (0-2); RBC Urine 0-2 /HPF (0-2); UACC Culture Trigger YES
[2024-07-22 14:51] LABS: HCG Quantitative 78216 mIU/mL
[2024-07-22] MEDS: Metoclopramide HCl 10 MG/2 ML VIAL IVPUSH (14:58)
[2024-07-22] MEDS: diphenhydrAMINE HCL 50 MG/ML VIAL 25 MG IVPUSH (15:03)
[2024-07-22] MEDS: 0.9 % Sodium Chloride 1,000 ML 999 ML IV (15:14)
[2024-07-22 16:30] VITALS: BP 101/61; PULSE 97; RESP 16; TEMP 37.2; O2SAT 100
[2024-07-22 16:49] VITALS: BP 101/61; PULSE 97; RESP 16; TEMP 37.2; O2SAT 100
== END 2024-07-22 16:49 | disposition home or self-care (01) ==
PROVIDERS: Physician Assistant Medical; Registered Nurse Emergency; Emergency Provider Emergency Medicine; PCP Family Medicine
DX: O21.9 Vomiting of pregnancy, unspecified (principal); O23.41 Unspecified infection of urinary tract in pregnancy, first trimester; N39.0 Urinary tract infection, site not specified; Z3A.11 11 weeks gestation of pregnancy
CPT/HCPCS: 36415; 80053; 81001; 84702; 85025; 87086; 96374; 96375; 99284; J1200; J2765